=== PATIENT | female | born 1955 | race Two or more races ===

== ENCOUNTER 2024-02-17 10:52 | Emergency (ER) | payer OTHER ==
[~2024-02-17] VITALS: Ht 152.4 cm; Wt 45.4 kg
[~2024-02-17 10:52] MED LIST: BUSPIRONE HCL7.5 MG; HYDREA500 M1; LEVOXYL25 MCG; LEXAPRO5 MG; LORAZEPAM0.5 MG PO; PREDNISONE10 M2 PO; TENORMIN25 MG PO; TRAZODONE HCL150 MG
[2024-02-17] MEDS ORDERED: 0.9 % SODIUM CHLORIDE 1,000 ML IV STA (12:24)
[2024-02-17] MEDS ORDERED: DEXAMETHASONE SODIUM PHOSPHATE 4 MG/ML VIAL IV STA (12:25)
[2024-02-17] MEDS ORDERED: DEXAMETHASONE SODIUM PHOSPHATE 4 MG/ML VIAL ONE (12:37)
[2024-02-17 13:29] LABS: CREATININE SERUM 0.64 mg/dL (0.55-1.02); GFR 92.56; HEMATOCRIT 35.3 % (36.0-45.00); HEMOGLOBIN 11.9 g/dL (12.0-15.00); MEAN CELL VOLUME 85.8 fL (80.00-100.00); MEAN CORPUSCULAR HEMOGLOBIN 28.8 pg (27.00-32.0); MEAN CORPUSCULAR HGB CONC 33.6 g/dl (32.0-36.0); PLATELET COUNT 228 K/uL (150-450); POTASSIUM 4.11 mEq/L (3.5-5.1); RED BLOOD COUNT 4.12 M/uL (4.00-6.00); RED CELL DISTRIBUTION WIDTH 19.3 % (11.5-14.5)
== END 2024-02-17 17:23 | disposition home or self-care (01) ==
LOC: ER 10:52
PROVIDERS: General Practice
DX: R53.1 Weakness (principal); Z88.0 Allergy status to penicillin; Z88.2 Allergy status to sulfonamides; Z88.6 Allergy status to analgesic agent; Z91.013 Allergy to seafood; M19.90 Unspecified osteoarthritis, unspecified site; E03.8 Other specified hypothyroidism; I10 Essential (primary) hypertension; E11.9 Type 2 diabetes mellitus without complications; M06.8A Other specified rheumatoid arthritis, other specified site
CPT/HCPCS: 36415; 96365; 96366; 99282; J1100; J7030